=== PATIENT | male | born 1975 | race Caucasian/White ===

== ENCOUNTER 2017-10-24 20:33 | Emergency (ER) | payer SELFPAY ==
[2017-09-11 07:48] VITALS: Ht 177.8 cm; Wt 73.5 kg
[~2017-10-24] VITALS: Ht 177.8 cm; Wt 73.5 kg
[~2017-10-24 20:33] MED LIST: CIP500 PO; DOC100 PO; PER PO
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
[2017-10-24 21:12] LABS: PLATELET COUNT, AUTOMATED 404 K/uL (150-450)
[2017-10-24 21:40] VITALS: BP 115/80
--- NOTE | 2017-10-25 03:35 | EKG ---
FACILITY: [facility] [place] PATIENT NAME: LETTY WRIGHT : [id number] MR: [id number] V: [id number] EXAM DATE: ORDERING PHYSICIAN: PETER HINES TECHNOLOGIST: QUINCY Test Reason : SUICIDAL IDEATION Blood Pressure : / mmHG Vent. Rate : 089 BPM Atrial Rate : 089 BPM P-R Int : 174 ms QRS Dur : 090 ms QT Int : 374 ms P-R-T Axes : 060 090 061 degrees QTc Int : 455 ms Normal sinus rhythm with sinus arrhythmia Rightward axis Borderline ECG No previous ECGs available Confirmed by MEHNAZ GUILLORY ([id number]) on 10/26/2017 8:56:43 AM Referred By: Confirmed By:MEHNAZ GUILLORY
== END 2017-10-24 21:52 ==
LOC: ER 20:41
DX: F32.9 Major depressive disorder, single episode, unspecified (principal); F10.920 Alcohol use, unspecified with intoxication, uncomplicated; R45.851 Suicidal ideations
CPT/HCPCS: 36415; 80305; 80320; 80329; 81001; 82040; 82247; 82310; 82374; 82435; 82565; 82947; 83735; 84075; 84132; 84155; 84295; 84443; 84450; 84460; 84520; 85025; 93005; 99284

== ENCOUNTER 2017-10-24 21:34 | Inpatient (IN) | payer SELFPAY ==
[2017-09-11 07:48] VITALS: Ht 177.8 cm; Wt 78.9 kg
[~2017-10-24] VITALS: Ht 177.8 cm; Wt 78.9 kg
[2017-10-24] MEDS ORDERED: MAG HYD/AL HYD/SIMETH 30ML UDC PO PRN (23:35)
[2017-10-24] MEDS ORDERED: ACETAMINOPHEN 325 MG TAB PO PRN (23:35)
[2017-10-24 23:58] VITALS: BP 125/95
[2017-10-25] MEDS: MULTIVITAMINS TAB PO SCH (08:21)
[2017-10-25 13:40] VITALS: BP 98/60
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
--- NOTE | 2017-10-25 17:41 | BHS - Psychiatric Evaluation ---
ER - Title 25 MHE Evaluation Title 25 Evaluation Patient Detained By: Physician (Dr. 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 Patient said he was going to kill himself. He left a suicidal note. He was found by his with his pistol. She grabbed the pistol from him. Patient left the home residence later returned and was apprehended by police and brought in and placed on emergency usp. Patient was intoxicated. His drug tox screen came back positive foramphetamines. Admit due to SI or Attempt: Yes (Patient left a suicide note and had means to kill himself with his pistol.) Suicide Plan: Has Plan with Access Current Suicide Plan Patient denies suicidality currently. Alcohol or Drugs Involved: Yes (Amphetamines) Is Patient Info Reliable: Yes (Patient is likely a good historian, although he does not remember writing some of the suicide letter.) Is Collateral Info Reliable: Yes () Current Home Psych Meds: Reports no psychiatric medication currently Mental Status Exam General Appearance: Casual, Well Groomed, Good Eye Contact, Cooperative, Polite , Good Interaction Speech: Clear, Spontaneous, Normal Rate, Normal Rhythm, Normal Volume, Normal Tone Mood: Dysthmic/Depressed (Shares that he misses the way things were between himself and his 1 year ago.) Affect: Sad Thought Process: Organized, Logical, Goal Directed Thought Content: Suicidal Ideation (Denies current ideation, says, "last night I was, and then I talked to my brother, and I was past it." ) Sensorium: Clear Cognition: Alert & Oriented-Person, Alert & Oriented-Place, Alert & Oriented- Time, Jmxqx-Vwpiybzl-Thyrpxebo Memory: Immediate, Recent, Remote Insight Judgment: Poor Sleep: Normal Hallucinations: Denies Delusions: Denies Current Risk & History Current Dangerous Risk Assessm: Current Suicide Ideation (Says he remembers feeling suicidal last night.) Past Dangerous Risk Assessm: Self-Injurious Behaviors (Substance use he says is occuring with greater frequency and having ruinous effects.) Prior Alcohol/Drug Abuse Patient reports a history of Polysubstance Use Disorder. Previous Suicide Attempt: No Previous Attempt (There are no known attempts from patient report.) Previous Psychiatric Illness: Yes (Patient says he has had some mood problems as well as substance dependence.) Previous Diagnosis/Treatment: Patient reports seeking treatment for mood problems, especially anger, and has seen therapist Xochitl Sanchez at [facility] recently. Previous Psychiatric Treatment: Yes Risk Assessment & Disposition Evaluated Risk Assessment: Patient risk is high given a plan to kill himself, means to take his life ( pistol), and a suicide note conveying his intention and hopelessness. Further, patient was intoxicated, and with poor judgement and no current social/ therapeutic outpatient support, in danger of completing suicide. Impression: Primary Impression: Alcohol intoxication Additional Impression: Depression with suicidal ideation Meets Mental Illness Req.: Yes Meets Dangerousness Req.: Yes Emergency Snf to be: Upheld Decision Comment: Patient usp was upheld by Dr. Salgado, corresponding paperwork completed by Mental Health Examiner, Urmila Claudio. Date of Decision: Oct 25, 2017 Time of Decision: 17:39 Patient is Medically Stable at: Yes Disposition: BHS Problem Qualifiers URMILA CLAUDIO [facility] Oct 25, 2017 17:41
[2017-10-25 22:39] VITALS: BP 105/63
[2017-10-26] MEDS: MULTIVITAMINS TAB PO SCH (08:12)
--- NOTE | 2017-10-26 09:09 | BHS Progress Note ---
[facility] - Subjective Progress Notes Subjective 'I'm always happy as long as I have a book to read." Denies depression, anger or anxiety, Reports sleep sufficient, mood level, denies suicidal/homicidal ideation Denies urge to use substances, last use of methamphetamine 2-3 prior to admission Previously took medications, last took Latuda early 2016, felt it increased his anger. States all firearms are in [place], has only one pistol, was given to police Reports he has plans to divorce, uses methamphetamine as well, "The only one that makes me really mad is her. That day is the day we really decided to divorce." In process of selling home, plans to move to [place], live with grandmother, attend [employer] school Last saw individual therapist 2016, discuss substance abuse therapy recommendation Suicidal Ideation: None Homicidal Ideation: None [facility] - Objective Physical Exam Muscle Strength and Tone: WNL Gait and Station: Steady [facility] Medications Reviewed: Side Effects, Benefits of Medication, Risks Allergies Reviewed: Yes Mental Status Exam General Appearance: Casual, Well Groomed, Good Eye Contact, Cooperative, Polite , Good Interaction Speech: Clear, Spontaneous, Normal Rate, Normal Rhythm, Normal Volume, Normal Tone Mood: No Dysthmic/Depressed, Euthymic Affect: Full and Appropriate, Calm, No Sad Thought Process: Organized, Logical, Goal Directed Thought Content: Suicidal Ideation, Homicidal Ideation Sensorium: Clear Cognition: Alert & Oriented-Person, Alert & Oriented-Place, Alert & Oriented- Time, Gqpqn-Vofavren-Viptjmfnc Memory: Immediate, Recent, Remote Intelligence: Average Insight Judgment: No Poor, Fair Lab Vital Signs Date Time Temp Pulse Resp B/P (MAP) Pulse Ox O2 Delivery O2 Flow Rate FiO2 10/25/17 22:39 97.7 54 105/63 (77) 96 Room Air 10/25/17 13:40 16 Allergies Coded Allergies No Known Drug Allergies ([id number]) [facility] Assessment and Plan Qovr-ju-Tnlx Encounter Date: Oct 26, 2017 Exnq-iz-Kora Encounter Time: 10:20 Problems: (1) Other stimulant use, 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 JOSEP CARBAJAL NP Oct 26, 2017 09:09
[2017-10-26 12:05] VITALS: BP 111/68
[2017-10-26 20:45] VITALS: BP 121/87
[2017-10-27 06:35] VITALS: BP 109/70
[2017-10-27] MEDS: MULTIVITAMINS TAB PO SCH (08:24)
--- NOTE | 2017-10-27 10:03 | BHS Progress Note ---
[facility] - Subjective Progress Notes Subjective Patient interacting well with treatment team staff today, denies any symptoms of depression, admits to ongoing stressors, but [place]. Will continue to work with patient and develop contact with family so that safe discharge plan may be implemented. No other concerns. Will continue work on safe discharge plan Suicidal Ideation: None Homicidal Ideation: None [facility] - Objective Physical Exam Vital Signs Vital Signs Date Time Temp Pulse Resp B/P (MAP) Pulse Ox O2 Delivery O2 Flow Rate FiO2 10/27/17 06:35 98.9 54 15 109/70 (83) 94 Room Air Muscle Strength and Tone: WNL Gait and Station: Steady [facility] Medications Reviewed: Side Effects, Benefits of Medication, Risks Allergies Reviewed: Yes Mental Status Exam General Appearance: Casual, Well Groomed, Good Eye Contact, Cooperative, Polite , Good Interaction, No Unkept, No Tearful, No Psychomotor Agitation, No Psychomotor Retardation Speech: Clear, Spontaneous, Normal Rate, Normal Rhythm, Normal Volume, Normal Tone Mood: Euthymic Affect: Full and Appropriate, Calm Thought Process: Organized, Logical, Goal Directed, No Loose Associations, No Flight of Ideas Thought Content: No Suicidal Ideation, No Homicidal Ideation, No Delusions, No Auditory Halllucinations, No Visual Hallucinations, No Thought Broadcasting, No Ideas of Reference, No Obsessions, No Compulsions Sensorium: Clear Cognition: Alert & Oriented-Person, Alert & Oriented-Place, Alert & Oriented- Time, Ycslx-Imkydqea-Dbozbckhx Memory: Immediate, Recent, Remote Intelligence: Average Insight Judgment: Fair (in absence of drugs and alcohol) [facility] Assessment and Plan Fpnr-wx-Mxbx Encounter Date: Oct 27, 2017 Pdgn-if-Qfaf Encounter Time: 09:00 Problems: (1) Stimulant use disorder Status: Chronic (2) Cannabis use disorder, moderate, dependence Status: Chronic (3) Other stimulant use, unspecified with stimulant-induced mood disorder Status: Acute Assessment & Plan: combination, of alcohol, amphetamines. Condition 1. continue treatment. 2. detox from substances considered complete. 3. formulate safe discharge plan. DARI CONTRERAS MD Oct 27, 2017 10:03
[2017-10-27 14:43] VITALS: BP 105/76
[2017-10-28 06:38] VITALS: BP 113/72
[2017-10-28] MEDS: MULTIVITAMINS TAB PO SCH (08:13)
[2017-10-28] MEDS ORDERED: MULT-1379 PO (12:29)
[2017-10-28 13:38] VITALS: BP 119/85
--- NOTE | 2017-10-29 21:00 | DISCHARGE SUMMARY ---
DATE OF ADMISSION: October 24, 2017 DATE OF DISCHARGE: October 28, 2017 FINAL DIAGNOSES 1. Stimulant use disorder, severe, methamphetamine. 2. Cannabis use disorder. 3. Alcohol use disorder, mild to moderate. 4. Substance-induced mood disorder. 5. Partner relational problems. 6. Social stressors. REASON FOR ADMISSION This is a 42-year-old male who wrote what appears to be a suicide note and then later declined that it was a suicide note. The patient was intoxicated, high on methamphetamine. The patient is getting a divorce from his at this time. Please see H and P for full details. The patient was admitted under an emergency detainment. Please see ER notes as well. The patient was calm and cooperative throughout the stay on the unit, and the patient was interacting well. The patient continued to deny any suicidal ideation throughout his stay. The patient quickly improved. The patient agreed to abstain from all illicit substances in the past and work with therapist and treatment team staff to formulate a plan. The patient will be moving to [place] with relatives in the near future. The patient was exhibiting no parasuicidal displays on the unit and no excessive depressive symptoms. The patient was discharged to home. PHYSICAL EXAMINATION Please see emergency room note. Notable for: GENERAL: A 42-year-old male in no acute physical distress, having mild alcohol intoxication combined with amphetamine intoxication at time of admission. VITAL SIGNS: At time of admission through the ER, temperature 98.5, pulse 103, respiratory rate 18, blood pressure 129/86, and pulse oximetry 82% on room air. At time of discharge from Behavioral Health Unit, vital signs showed temperature 98.6, pulse 60, respiratory rate 15, blood pressure 119/85, and pulse oximetry 98% on room air. LABORATORY DATA CBC was unremarkable at time of admission. CMP notable for potassium slightly low at 3.2, AST 39, slightly elevated, TSH in normal range, urinalysis unremarkable, toxicology screen positive for amphetamines, and serum alcohol level of 71. MENTAL STATUS EXAMINATION ON DISCHARGE GENERAL APPEARANCE, BEHAVIOR, AND ATTITUDE: This is a polite, cooperative, 42- year-old male in no psychomotor agitation or retardation. No bizarre mechanisms or tics. The patient is interacting well with this provider and treatment team staff. Good eye contact. No periods of tearfulness. SPEECH: Within normal limits. Regular rate, rhythm, volume, and tone. MOOD: Described as good and improved. AFFECT: Full and mood congruent. THOUGHT PROCESSES: Goal directed, logical. No loose associations or flight of ideas. THOUGHT CONTENT: Free of auditory or visual hallucinations, ideas of reference , thought broadcasting, delusions, obsessions, or compulsions. The patient is adamantly denying suicidal or homicidal ideations. SENSORIUM: Clear. COGNITION: Alert and oriented to person, place, time, and situation. MEMORY: Immediate, recent, and remote estimated intact. INTELLIGENCE: Average based on interview. INSIGHT AND JUDGMENT: Considered grossly intact and appropriate for outpatient care in the absence of substance use. RESULTS OF TESTING AND IMAGING Not done. LABORATORY DATA See above. CONSULTATIONS None. TREATMENT The patient received medications and participated in individual and group therapy. HOSPITAL COURSE The patient was largely cooperative throughout his stay on the unit. The patient was taking an active role in his treatment. Alcohol withdrawal was not concerning. In the absence of methamphetamine and alcohol, the patient's mood continued to improve. CONDITION OF PATIENT ON DISCHARGE Stable, considered a minimal risk to himself or others. He is appropriate for outpatient care. DISPOSITION The patient was discharged to home. He would follow up with outpatient services as recommended, particularly therapy and medication evaluation. The patient did agree to abstain from all illicit substances and alcohol. He was given the Crisis Line should symptoms return. The patient will take a multivitamin with minerals daily. Risks, benefits, and alternatives of the above discharge plan were discussed. Informed consent was given to proceed with the above discharge plan by this competent patient. [place]
== END 2017-10-28 16:01 | disposition home or self-care (01) | DRG 897 ==
LOC: BHS 21:34
PROVIDERS: ADMIT Nurse Practitioner Psychiatric/Mental Health; ATTEND Nurse Practitioner Psychiatric/Mental Health
DX: F15.24 Other stimulant dependence with stimulant-induced mood disorder (principal); R45.851 Suicidal ideations; F10.120 Alcohol abuse with intoxication, uncomplicated; F12.20 Cannabis dependence, uncomplicated; F32.9 Major depressive disorder, single episode, unspecified; Z62.810 Personal history of physical and sexual abuse in childhood; Y90.3 Blood alcohol level of 60-79 mg/100 ml; Z62.811 Personal history of psychological abuse in childhood; Z63.0 Problems in relationship with spouse or partner; Z81.8 Family history of other mental and behavioral disorders; Z56.0 Unemployment, unspecified
CPT/HCPCS: 90853